=== PATIENT | male | born 1985 | race Caucasian/White ===

== ENCOUNTER 2022-12-04 11:46 | Emergency (ER) | payer BC, SELFPAY ==
[2022-12-04 11:47] VITALS: BP 154/90; PULSE 93; RESP 16; TEMP 36.6; O2SAT 96; BMI 81.3
--- NOTE | 2022-12-04 11:59 | EKG12_ITS ---
Test Reason : ABD PAIN Blood Pressure : / mmHG Vent. Rate : 090 BPM Atrial Rate : 090 BPM P-R Int : 204 ms QRS Dur : 102 ms QT Int : 382 ms P-R-T Axes : 083 065 035 degrees QTc Int : 467 ms Sinus rhythm with Premature supraventricular complexes Otherwise normal ECG Confirmed by TORI PEREZ, ROBERT ([id number]), marketing editor IVANNA WHITNEY ([id number]) on 12/05/2022 1:39:38 PM Referred By: Confirmed By:ROBERT VALLE MD
--- NOTE | 2022-12-04 11:59 | ED.VIS.GI ---
HPI HPI - GI History of Present Illness Chief Complaint: Abd Pain Detail of Chief Complaint: Abdominal pain Informant: patient Abdominal Pain/Flank Pain Current Severity: 06/25 Narrative Narrative: Patient presents with abdominal pain and started 5 days ago. Patient states initially it would come and go and felt rumbly in his stomach and he thought it was just gas. 3 days ago he had 1 episode of emesis. He had a few episodes of watery stool but has passed some formed stool as well. He thinks there may have been at 1 point some blood in the stool. No black tarry stool. Patient drinks alcohol occasionally. No prior abdominal surgeries. Patient denies fevers. He had decreased appetite. He was seen in urgent care and was given Zofran and an injection of Toradol. Patient referred to ER for further work-up. Patient tells me he weighs over 600 pounds. Patient tells me at times has been getting diaphoretic related to the pain. Prior similar symptoms: No PFSH PFSH Medical History no medical history Home Medications lansoprazole 30 mg capsule,delayed release (Prevacid) 30 mg PO DAILY #30 caps 12/04/22 [Rx Last Taken Unknown] Allergy/AdvReac Type Severity Reaction Status Date / Time No Known Allergies Allergy Verified 12/04/22 11:49 Surgical History no surgical history Social History Smoking Status: Never smoker ROS ROS ED Review of Systems ROS Unobtainable: other Constitutional Constitutional ED: Reports lethargy; Denies chills, fever(s), sweats or weight loss Eyes Eyes: Denies blurry vision, change in vision or diplopia ENT ENT ED: Denies rhinorrhea or sore throat Cardiovascular Cardiovascular: Denies chest pain, orthopnea or racing heartbeat Respiratory/Chest Respiratory/Chest: Denies cough, dyspnea, dyspnea on exertion, orthopnea or sputum Gastrointestinal Gastrointestinal: Reports abdominal pain, diarrhea, nausea and vomiting Genitourinary Genitourinary ED: Denies dysuria, hematuria or urinary frequency Musculoskeletal Musculoskeletal: Denies arthralgias, back pain, myalgias or neck pain Integumentary Denies abscess, Abrasions or rash Neurologic Neurologic: Denies headache(s) or weakness Psychiatric Psychiatric: Denies anxiety, depression or suicidal thoughts Endocrine Endocrinology: Denies polydipsia, polyphagia or polyuria Hematologic/Lymphatic Hematologic/Lymphatic: Denies easy bleeding, easy bruising or lymphadenopathy Allergic/Immunologic Allergic/Immunologic ED: Denies mouth swelling, tongue swelling or urticaria EXAM Physical Exam Const Vital Signs: 12/04/22 11:47 Temperature 97.9 F Temperature Source Temporal Pulse Rate 93 Respiratory Rate 16 Blood Pressure 154/90 H Blood Pressure Mean 111 Pulse Ox 96 Oxygen Delivery Method Room Air Positive well nourished and well developed General Appearance ED: well developed and NAD HEENT Reports TM's clear and moist mucous membranes normocephalic and atraumatic; Negative for trauma or tenderness Tympanic Membrane ED: Yes TM's clear Eyes PERRL and EOMs intact bilaterally General Eye ED: Negative for pale conjunctiva or scleral icterus Neck no lymphadenopathy, supple and no JVD General: Negative for tenderness Chest Wall inspection of chest normal and palpation of chest normal Chest: Negative for tenderness Resp normal respiratory effort and clear to auscultation bilaterally Effort and Inspection: Negative for respiratory distress or pain with movement Auscultation: Negative for rhonchi, wheezes or diminished lung sounds Cardio regular rate, regular rhythm, S1 normal heart sound, S2 normal heart sound and no murmurs Peripheral Pulses: pulses 2+ throughout GI normal to inspection, nondistended, normoactive bowel sounds, soft to palpation, non-distended and no masses GI Narrative: Patient is morbidly obese. Patient with tenderness over the epigastric region with some guarding. There is no rebound or rigidity. Negative Alcantara sign. No pain to the lower abdomen. Back/Spine no CVA tenderness and no thoracic nor lumbar tenderness Extremity normal to inspection General Extremety ED: Negative for edema General Extremity: Negative for edema Neuro oriented x3, CN's II-XII intact bilaterally, no sensory deficits noted and gait normal Sensorium / Orientation: awake, alert, oriented to person, oriented to place and oriented to time Motor Exam: strength 5/5 throughout and strength abnormal Psych mental status grossly normal Skin no rashes or lesions noted and no wounds MDM MDM MDM Narrative Medical decision making narrative: IV line established on arrival. Patient did not want anything for pain. CBC with differential obtained showed a normal white count of 8.5. Chemistries were unremarkable. Lactate was normal 1.3. LFTs obtained showed a total bilirubin that was elevated 2.4 and the AST of 40 and ALT of 33 and an alk phos of 81. Lipase was normal at 108. We did obtain a CT scan of the abdomen pelvis with IV and p.o. contrast that was read by radiology as some haziness around the pancreas concerning for acute pancreatitis as well as some questionable gallstones or sludge. Clinically patient has no pain over the right upper quadrant and has a negative Alcantara sign. On repeat examination patient states that he has not had any more pain for over an hour and this is the first time he has not had pain in the last 3 days. I did discuss case with general surgeon on-call Dr. Ghazal Ramirez who asked that we start patient on a proton pump inhibitor and have him follow-up if he continues to have pain with her office for possible EGD. Clinically I do not feel he has cholecystitis. Patient advised on avoiding greasy and spicy foods. Patient advised to return if worsening pain, fever, vomiting, or condition should worsen anyway. Urine was positive for nitrites and urobilinogen but no signs of infection otherwise Lab Data Attestation: I reviewed the patient's lab results. Labs: Laboratory Results - last 24 hr 12/04/22 12/04/22 12/04/22 12:05 12:05 12:15 WBC 8.5 RBC 5.38 Hgb 15.0 Hct 45.3 MCV 84.2 MCH 27.9 MCHC 33.1 RDW Std Deviation 40.2 RDW Coeff of Ángel 13.1 Plt Count 123 L MPV 10.4 Immature Gran % (Auto) 0.400 Neut % (Auto) 70.8 H Lymph % (Auto) 17.3 L Frio % (Auto) 10.1 H Eos % (Auto) 0.8 Baso % (Auto) 0.6 Absolute Neuts (auto) 6.0 Absolute Lymphs (auto) 1.47 Nucleated RBC % 0 Sodium 138 Potassium 4.1 Chloride 105 Carbon Dioxide 23.0 Anion Gap 10 BUN 10 Creatinine 0.85 Estim Creat Clear Calc 130.60 Est GFR (MDRD) Af Amer 131 Est GFR (MDRD) Non-Af 108 BUN/Creatinine Ratio 11.8 Glucose 118 H Lactic Acid 1.3 Calcium 9.2 Total Bilirubin 2.40 H AST 40 H ALT 33 Alkaline Phosphatase 81 Troponin I High Sens 5 Total Protein 7.8 Albumin 3.6 Globulin 4.2 Albumin/Globulin Ratio 0.9 Lipase 108 Urine Color Urine Clarity Urine pH Ur Specific [place] Urine Protein Urine Glucose (UA) Urine Ketones Urine Occult Blood Urine Nitrite Urine Bilirubin Urine Urobilinogen Ur Leukocyte Esterase Urine RBC Urine WBC Ur Squamous Epith Cells Urine Bacteria Urine Mucus 12/04/22 15:20 WBC RBC Hgb Hct MCV MCH MCHC RDW Std Deviation RDW Coeff of Ángel Plt Count MPV Immature Gran % (Auto) Neut % (Auto) Lymph % (Auto) Frio % (Auto) Eos % (Auto) Baso % (Auto) Absolute Neuts (auto) Absolute Lymphs (auto) Nucleated RBC % Sodium Potassium Chloride Carbon Dioxide Anion Gap BUN Creatinine Estim Creat Clear Calc Est GFR (MDRD) Af Amer Est GFR (MDRD) Non-Af BUN/Creatinine Ratio Glucose Lactic Acid Calcium Total Bilirubin AST ALT Alkaline Phosphatase Troponin I High Sens Total Protein Albumin Globulin Albumin/Globulin Ratio Lipase Urine Color Kathleen Urine Clarity Sl. Cloudy Urine pH 6.5 Ur Specific [place] 1.010 Urine Protein 30 H Urine Glucose (UA) Normal Urine Ketones 15 H Urine Occult Blood 25 H Urine Nitrite Positive H Urine Bilirubin 1 H Urine Urobilinogen 4 H Ur Leukocyte Esterase 25 H Urine RBC 0-5 SEEN Urine WBC 0-5 SEEN Ur Squamous Epith Cells 5-10 SEEN Urine Bacteria 1+ Urine Mucus 1+ Radiography Diagnostic Testing: Clinical Impression(s) from Imaging Studies Abdomen/Pelvis CT 12/04/22 12:25 IMPRESSION: Limited evaluation due to artifact from body habitus. Anterior abdomen incompletely imaged. Cholelithiasis or biliary sludge. Probable acute pancreatitis. Hepatosplenomegaly. Hepatic steatosis. Electronically Signed: Maria T Clark MD at 14:44 EST Reading Location ID and State: [facility] / [place] Tel , Service support , EKG Initial EKG: Attestation: I personally reviewed and interpreted this EKG as follows: Comments: Sinus rhythm with a rate of 90 bpm with PVCs otherwise no acute ST segment changes. Discharge Plan Triage Chief Complaint: Abd Pain ED Provider: Sonja Sandoval Dx/Rx/DC Orders Clinical Impression: Abdominal pain Instructions: ED Abdominal Pain Unkn Cause Male... Prescriptions: New lansoprazole [Prevacid] 30 mg capsule,delayed release(DR/EC) 30 mg PO DAILY Qty: 30 0RF Primary Care Provider: Care Physician,No Primary Referrals: Josh Lamb MD [Non-Staff] - Ghazal Ramirez MD [Med Staff - Active Staff] - 3-5 Days Disposition Disposition: Home, Self Care
[2022-12-04] MEDS: 0.9% Normal Saline 1,000 ML 125 ML IV (12:17)
[2022-12-04 12:20] LABS: Absolute Lymphocyte Count 1.47 X10^3/uL (0.83-4.51); Basophil# 0.05 X10^3/uL; Basophil% 0.6 % (0-1); Eosinophil# 0.07 X10^3/uL; Eosinophils% 0.8 % (0-5); Hematocrit 45.3 % (40-54); Lymphocyte # 1.47 X10^3/ul (0.83-4.51); Lymphocyte % 17.3 % (19-41); Mean Corp Hgb Conc 33.1 g/dL (32-36); Mean Corpuscular Hgb 27.9 pg (27.0-32.0); Mean Corpuscular Volume 84.2 fL (80-94); Mean Platelet Vol. 10.4 fl (6.2-12.0); Monocyte# 0.86 X10^3/uL; Monocyte% 10.1 % (0-10); NRBC Flagged by Analyzer 0 % (0-5); Neutrophil # 6.01 X10^3/uL (2.7-7.7); Neutrophil % 70.8 % (47-70); Platelet Count 123 K/mm3 (150-450); RBC Distribution Width CV 13.1 % (11.6-14.6); RBC Distribution Width SD 40.2 fl (35.1-43.9); Red Blood Count 5.38 M/mm3 (4.6-6.2); White Blood Count 8.5 K/mm3 (4.4-11.0)
--- NOTE | 2022-12-04 12:25 | CT_ITS ---
HISTORY: Abdominal pain since Monday, nausea. TECHNIQUE: Helically acquired images were obtained of the abdomen and pelvis after the intravenous administration of 100 mL Isovue-370. Gastrografin also administered orally. A radiation dose optimization technique was used for this scan. 1017 images. COMPARISON: None. FINDINGS: Artifact secondary to body habitus. LOWER CHEST: Lung bases clear. BOWEL: Bowel nondilated. Appendix not well visualized. Anterior bowel, omentum, abdominal wall incompletely imaged. PERITONEUM: No definite ascites. LIVER: Fatty infiltration. 22 cm length. GALLBLADDER/BILIARY TREE: Mild dependent densities. SPLEEN: 19.7 cm in length. PANCREAS: Mild proximal peripancreatic haziness with artifact noted. KIDNEYS/ADRENAL GLANDS: Unremarkable. VESSELS: No abdominal aortic aneurysm. PELVIC ORGANS: Unremarkable. ABDOMINAL WALL: Moderate fat-containing umbilical hernia. BONES: Degenerative change. CT/Abdomen/Pelvis WITH Contrast IMPRESSION: Limited evaluation due to artifact from body habitus. Anterior abdomen incompletely imaged. Cholelithiasis or biliary sludge. Probable acute pancreatitis. Hepatosplenomegaly. Hepatic steatosis. Electronically Signed: Maria T Clark MD at 14:44 EST ,
[2022-12-04 12:48] LABS: ALB/GLOB Ratio 0.9 RATIO (0.9-2.4); AST(SGOT) 40 U/L (15-37); Alanine Aminotransfer ALT/SGPT 33 U/L (16-61); Albumin, Serum 3.6 g/dL (3.2-5.0); Alkaline Phosphatase 81 U/L (45-117); Anion Gap 10 (5-15); BUN 10 mg/dL (7-18); BUN/Creat Ratio 11.8 RATIO (10-20); Calcium,Total 9.2 mg/dL (8.5-10.1); Chloride 105 mmol/L (98-107); Creatinine, Serum 0.85 mg/dL (0.70-1.30); EST Glomerular Filtration Rate 108 mL/min (>60); Est Glom Filt Rate - Afr Amer 131 mL/min (>60); Globulin 4.2 g/dL (2.2-4.2); Glucose 118 mg/dL (74-106); Lipase 108 U/L (73-393); Potassium 4.1 mmol/L (3.5-5.1); Protein, Total 7.8 g/dL (6.4-8.2); Sodium Level 138 mmol/L (136-145); Troponin-I HS 5 pg/mL (3.0-78.0)
[2022-12-04 12:49] LABS: Lactic Acid 1.3 mmol/L (0.4-1.9)
[2022-12-04 13:47] VITALS: PULSE 99; RESP 18; O2SAT 98
[2022-12-04 15:31] LABS: Color, Urine Amber (Yellow); Glucose, Dipstick Normal (Normal); Ketone-Dipstick 15 mg/dl (Negative); Leukocyte Esterase-Dipstick 25 /ul (Negative); Nitrite-Dipstick Positive (Negative); Occult Blood-Urine 25 /ul (Negative); Protein-Dipstick 30 mg/dl (Negative); Urine Clarity Sl. Cloudy (Clear); Urine Urobilinogen 4 mg/dl (Normal); Urine pH 6.5 (5.0 - 8.0)
[2022-12-04 15:33] LABS: Urine Bilirubin Dipstick 1 mg/dL (Negative)
[2022-12-04 15:37] LABS: White Blood Cells 0-5 SEEN /hpf (0-5)
[2022-12-04 15:38] LABS: Bacteria 1+ /hpf (None Seen); Mucous, Urine 1+ /hpf (<or=2+); Red Blood Cells-Urine 0-5 SEEN /hpf (0-5); Squamous Epithelial Cells - UA 5-10 SEEN /hpf (0-5)
[2022-12-04 15:47] VITALS: PULSE 96; RESP 20; O2SAT 99
== END 2022-12-04 16:07 | disposition home or self-care (01) ==
PROVIDERS: Emergency Provider Emergency Medicine; Visit Provider Emergency Medicine
DX: R10.9 Unspecified abdominal pain (principal)
CPT/HCPCS: 74177; 80053; 81001; 83605; 83690; 84484; 85025; 93005; 99283; J7030; Q9967; A4216